=== PATIENT | male | born 1990 | race African-American/Black ===

== ENCOUNTER 2016-08-17 17:52 | Emergency (ER) | payer SELFPAY ==
[2016-08-17 17:55] VITALS: BP 135/69; BMI 18.1
[2016-08-17] MEDS ORDERED: ROCEPHIN VIAL 500 MG IM ONE (18:57)
--- NOTE | 2016-08-17 18:57 | DR.GENAD ---
HPI - PCP Primary Care Physician: NFD - Complaint/Symptoms Chief Complaint:: PATIENT STATED THAT IT HURTS WHEN HE URINATES. PATIENT STATED THAT HE HAS SOME YELLOWISH DISCHARGE. - Source History Provided: Patient - Mode of Arrival Mode of Arrival: Ambulatory - Timing Onset of Chief Complaint: 08/17/16 PMH - PMH Past Medical History: No Past Surgical History: No - Family History History of Family Medical Conditions: No - Social History Does patient currently use any type of tobacco product: Yes Have you used tobacco products in the last 12 months: Yes Type of Tobacco Use: Cigarettes Does any household member use tobacco: No Alcohol Use: None Do you use any recreational Drugs:: No Lives With: Family Lives Where: Home - infectious screening In the last 2 months have you had wt loss of >10#?: NO Have you had fever, night sweats or hemotysis?: No Have you traveled outside the country in the last 6 months?: No Isolation: Standard ROS - Review of Systems Eyes: No Symptoms Reported ENTM: No Symptoms Reported Respiratoy: No Symptoms Reported Cardiovascular: No Symptoms Reported Gastrointestinal/Abdominal: No Symptoms Reported Genitourinary: No Symptoms Reported Neurological: No Symptoms Reported Musculoskeletal: No Symptoms Reported Integumentary: No Symptoms Reported Hematologic/Lymphatic: No Symptoms Reported Endocrine: No Symptoms Reported Psychiatric: No Symptoms Reported All Other Systems: Reviewed and Negative PE - Vital Signs Vitals: Temperature 98.2 F Pulse Rate 90 Respiratory Rate 20 Blood Pressure 135/69 O2 Sat by Pulse Oximetry 100 - General General Appearance: Alert, In No Apparent Distress - Head Head Exam: Normal Inspection, Atraumatic - Eyes Eye exam: Normal Appearance, PERRL, EOMI - ENT ENT Exam: Normal Exam External Ear Exam: Normal External Inspection TM/Canal Exam: Bilateral Normal Nose Exam: Normal Nose Exam Mouth Exam: Normal Inspection Throat Exam: Normal Inspection - Neck Neck Exam: Normal Inspection - Chest Chest Inspection: Normal Inspection - Respiratory Respiratory Exam: Normal Lung Sounds Bilat Respiratory Exam: Bilateral Clear to Auscultation - Cardiovascular Cardiovascular Exam: Regular Rate, Normal Rhythm - Abdominal Exam Abdominal Exam: Normal Inspection, Normal Bowel Sounds Abdominal Tenderness: negative: RUQ, RLQ, LUQ, LLQ, Epigastrium, Suprapubic, Diffuse, Mild, Moderate, Severe, Other - Extremities Extremities Exam: Normal Inspection, Full ROM - Back Back Exam: Normal Inspection - Neurologic Neurological Exam: Alert, Oriented X3, CN II-XII Intact - Psychiatric Psychiatric Exam: Normal Affect - Skin Skin Exam: Warm, Dry, Intact Course - Treatment Treatment: ceftriaxone 500mg IM - Reevaluation 1st: Unchanged - Diagnosis Discharge Problem: STD (sexually transmitted disease) - Discharge Plan Condition: Stable - Follow ups/Referrals Follow ups/Referrals: NFD,None [Primary Care Provider] - 3 days - Instructions
[2016-08-17] MEDS ORDERED: XYLOCAINE 1 % (PLAIN) ONE (19:01)
[2016-08-17] MEDS ORDERED: ROCEPHIN VIAL 500 MG ONE (19:01)
[2016-08-17 20:50] LABS: CHLAMYDIA TRACH URINE NOT DETECTED (NOT DETECT)
[2016-08-23 07:29] LABS: HCV VIRAL LOG <1.2 log IU
== END 2016-08-17 19:28 | disposition home or self-care (01) ==
LOC: ER 18:01
DX: A64 Unspecified sexually transmitted disease (principal)
CPT/HCPCS: 87491; 87522; 87591; 96372; 99282; J0696; J2001

== ENCOUNTER 2023-06-25 07:09 | Observation (INO) ==
[2023-06-25 07:18] VITALS: BMI 18.8
--- NOTE | 2023-06-25 07:27 | DR.ABDMALE ---
HPI Time seen Time Seen by Provider: 06/25/23 07:26 PCP Primary Care Physician: EDMOND HPI comment HPI Comment: RLQ abdominal pain that started two prior to arrival to ER. No vomiting or diarrhea. Patient denies fever or dysuria. Patient last ate last ni ght and may have drank some water this morning at 6 AM. Patient have had no previous surgery and no significant abdominal history in the past. Complaint Chief Complaint Doctors Comments: Patient is 32-year-old male in the emergency room with above history. Chief Complaint:: Patient states that for the past hour he has been having abdominal pain. He states that it is tender on his right lower quadrant more than the rest but the pain is present throughout. He also states that he is having pain in his right shoulder. He denies any throwin up or loose stools. COVID-19 Coronavirus risk:travel/contact w/high risk person: No Has patient experienced Coronavirus symptoms: No Reviewed Nurses Notes Review: Yes Mode of arrival Mode of Arrival: Ambulatory Timing Onset of Chief Complaint: 06/25/23 PMH PMH Past Medical History: Yes Past Medical History: Headaches Past Surgical History: No Family History History of Family Medical Conditions: Yes Family Medical History: Hypertension Social History Does patient currently use any type of tobacco product: Yes Have you used tobacco products in the last 12 months: Yes Type of Tobacco Use: Cigarettes Does any household member use tobacco: Yes Alcohol Use: Occasionally Do you use any recreational Drugs:: No Lives Where: Home Travel Risk Coronavirus risk:travel/contact w/high risk person: No Has patient experienced Coronavirus symptoms: No Infectious screening In the last 2 months have you had wt loss of >10#?: NO Have you had fever, night sweats or hemotysis?: No Have you traveled outside the country in the last 6 months?: No Isolation: Standard ROS Review of Systems Constitutional: No Symptoms Reported Eyes: No Symptoms Reported ENTM: No Symptoms Reported Respiratoy: No Symptoms Reported Cardiovascular: No Symptoms Reported Gastrointestinal/Abdominal: Abdominal Pain; negative Diarrhea or Vomiting Genitourinary: No Symptoms Reported; negative Dysuria Neurological: No Symptoms Reported Musculoskeletal: No Symptoms Reported Integumentary: No Symptoms Reported Hematologic/Lymphatic: No Symptoms Reported Endocrine: No Symptoms Reported Psychiatric: No Symptoms Reported All Other Systems: Reviewed and Negative PE Vital Signs Vital Signs: Temp Pulse Resp BP Pulse Ox O2 Del Method 06/25/23 08:26 22 06/25/23 07:56 18 06/25/23 07:12 97.6 F 77 18 121/63 99 Room Air General Limitations: No Limitations General Appearance: Alert Head Head Exam: Normal Inspection Eyes Eye exam: Normal Appearance ENT ENT Exam: Normal Exam Neck Neck Exam: Normal Inspection Chest Chest Inspection: Normal Inspection Respiratory Respiratory Exam: Normal Lung Sounds Bilat Respiratory Exam: Bilateral: Clear to Auscultation Cardiovascular Cardiovascular Exam: Regular Rate Abdominal Exam Abdominal Exam: Normal Bowel Sounds, Distention and Tenderness Abdominal Tenderness: RLQ, Diffuse and Moderate Rectal Rectal Exam: Deferred Back Back Exam: Normal Inspection; negative (R) CVA Tenderness or (L) CVA Tenderness Extremeties Extremities Exam: Normal Inspection Exam: Male: Deferred Neurologic Neurological Exam: Alert and Oriented X3; negative Motor Sensory Deficit Psychiatric Psychiatric Exam: Normal Affect and Normal Mood Skin Skin Exam: Warm and Intact MDM Differential Diagnosis Differential Diagnosis: Appendicitis, Bowel Obstruction, Cholangitis, Cholelethiasis, Diverticular disease, Inflammatory BD, Pancreatitis, Urinary tract infection and Urolithiasis COURSE Treatment Treatment: See orders done while patient was in the emergency room. Patient was given normal saline 125 cc an hour. Patient was also given Demerol 25 mg IV. Patient was discussed with surgeon on-call Dr. De La Fuente. He will accept patient for further management. Patient labs and CT was discussed with him. Consultation Consultation Comments: Patient discussed with Dr. Colon surgeon on-call. He will admit patient for further management. Education/Counseling Education/Counseling: Patient Educated On: Diagnosis ROR Labs Reviewed Laboratory Results Reviewed?: Yes 06/25/23 07:49 06/25/23 07:49 Laboratory: WBC 16.1 X10^3/uL (3.6-10.0) H 06/25/23 07:49 RBC 3.62 X10^6/uL (4.7-6.0) L 06/25/23 07:49 Hgb 12.4 g/dL (13.5-18.0) L 06/25/23 07:49 Hct 37.9 % (42.0-54.0) L 06/25/23 07:49 MCV 104.8 fL (80.0-100.0) H 06/25/23 07:49 MCH 34.4 pg (27.0-34.0) H 06/25/23 07:49 MCHC 32.8 g/dL (33.0-35.0) L 06/25/23 07:49 RDW 13.5 % (11.6-16.5) 06/25/23 07:49 Plt Count 359 X10^3/uL (150.0-450.0) 06/25/23 07:49 MPV 7.2 fL (7.4-11.0) L 06/25/23 07:49 Neut % (Auto) 65.3 % (42.0-75.0) 06/25/23 07:49 Lymph % (Auto) 24.7 % (21.0-51.0) 06/25/23 07:49 [place] % (Auto) 7.9 % (0.0-13.0) 06/25/23 07:49 Eos % (Auto) 1.5 % (0.9-2.9) 06/25/23 07:49 Baso % (Auto) 0.6 % (0.2-1.0) 06/25/23 07:49 Neut # (Auto) 10.5 x10^3/uL (2.2-4.8) H 06/25/23 07:49 Lymph # (Auto) 4.0 X10^3/uL (1.3-2.9) H 06/25/23 07:49 [place] # (Auto) 1.3 x10^3/uL (0.3-0.8) H 06/25/23 07:49 Eos # (Auto) 0.2 x10^3/uL (0.0-0.2) 06/25/23 07:49 Baso # (Auto) 0.1 X10^3/uL (0.0-0.1) 06/25/23 07:49 Absolute Nucleated RBC 0.0 /100WBC 06/25/23 07:49 Sodium 146 mmol/L (136-145) H 06/25/23 07:49 Corrected Sodium 147 mmol/L (136-145) H 06/25/23 07:49 Potassium 3.5 mmol/L (3.5-5.1) 06/25/23 07:49 Chloride 107 mmol/L (98-107) 06/25/23 07:49 Carbon Dioxide 29.5 mmol/L (21-32) 06/25/23 07:49 BUN 13 mg/dL (7-18) 06/25/23 07:49 Creatinine 0.93 mg/dL (0.70-1.30) 06/25/23 07:49 Est GFR (MDRD) Af Amer > 60 (>60) 06/25/23 07:49 Est GFR (MDRD) Non-Af > 60 (>60) 06/25/23 07:49 Glucose 134 mg/dL (65-99) H 06/25/23 07:49 Calcium 8.4 mg/dL (8.5-10.1) L 06/25/23 07:49 Corrected Calcium TNP 06/25/23 07:49 Magnesium 1.8 mg/dL (2.0-2.9) L 06/25/23 07:49 Total Bilirubin 0.20 mg/dL (0.2-1.0) 06/25/23 07:49 AST 14 Units/L (15-37) L 06/25/23 07:49 ALT 18 Units/L (12-78) 06/25/23 07:49 Alkaline Phosphatase 70 Units/L (46-116) 06/25/23 07:49 Total Protein 7.0 g/dL (6.4-8.2) 06/25/23 07:49 Albumin 3.8 g/dL (3.4-5.0) 06/25/23 07:49 Globulin 3.2 g/dL (2.5-4.5) 06/25/23 07:49 Albumin/Globulin Ratio 1.2 Ratio (1.1-2.1) 06/25/23 07:49 Amylase 38 Units/L (25-115) 06/25/23 07:49 Lipase 25 Units/L (16-77) 06/25/23 07:49 XRAY XRAY Interpreted by: Radiologist (Report noted.) Opioid Opioid Risk Tool Age (Neto box if 16-45): Yes History of Preadolescent Sexual Abuse: No Total: 1 Total Score Risk Category: Low Risk Copyright: Gareth MANNING predicting aberrant behaviors Discharge Plan Diagnosis Discharge Problem: Abdominal pain, RLQ Acute appendicitis Qualifiers: Acute appendicitis type: unspecified acute appendicitis type Qualified Code(s): K35.80 - Unspecified acute appendicitis Discharge Plan Patient Disposition: ADMITTED INPATIENT Condition: Stable
[2023-06-25] MEDS: ZOFRAN INJ 4 MG VIAL IVP ONE (07:55)
[2023-06-25] MEDS: DEMEROL INJ IVP ONE (07:56)
[2023-06-25 08:00] LABS: BASOPHILS # (AUTO) 0.1 X10^3/uL (0.0-0.1); BASOPHILS % (AUTO) 0.6 % (0.2-1.0); EOSINOPHILS # (AUTO) 0.2 x10^3/uL (0.0-0.2); EOSINOPHILS % (AUTO) 1.5 % (0.9-2.9); HEMATOCRIT 37.9 % (42.0-54.0); HEMOGLOBIN 12.4 g/dL (13.5-18.0); LYMPHOCYTES % (AUTO) 24.7 % (21.0-51.0); MEAN CORPUSCULAR HEMOGLOBIN 34.4 pg (27.0-34.0); MEAN CORPUSCULAR HGB CONC 32.8 g/dL (33.0-35.0); MEAN CORPUSCULAR VOLUME 104.8 fL (80.0-100.0); MEAN PLATELET VOLUME 7.2 fL (7.4-11.0); MONOCYTES # (AUTO) 1.3 x10^3/uL (0.3-0.8); MONOCYTES % (AUTO) 7.9 % (0.0-13.0); NEUTROPHILS # (AUTO) 10.5 x10^3/uL (2.2-4.8); NEUTROPHILS % (AUTO) 65.3 % (42.0-75.0); PLATELET COUNT 359 X10^3/uL (150.0-450.0); RED BLOOD COUNT 3.62 X10^6/uL (4.7-6.0); RED CELL DISTRIBUTION WIDTH 13.5 % (11.6-16.5); WHITE BLOOD COUNT 16.1 X10^3/uL (3.6-10.0)
--- NOTE | 2023-06-25 08:04 | CT ---
EXAM:CT abdomen and pelvis without contrastHISTORY:Acute generalized abdominal pain, most notable in right lower quadrant.COMPARISON:None.TECHNIQUE:Multi ple axial images of the abdomen and pelvis were obtained from the lung bases to the pubic symphysis without the administration of IV contrast. Dose reduction techniques including Automated Exposure Control (AEC) and adjustment of mA and kV were utilized.FINDINGS:LOWER CHEST: No significant abnormality.LIVER: No significant abnormality.BILIARY: The gallbladder is unremarkable. No biliary ductal dilatation.PANCREAS:No significant abnormality.SPLEEN: No significant abnormality.ADRENALS: No significant abnormality.KIDNEYS: Nonobstructive 4 mm midpole left renal stone.STOMACH AND BOWEL: No significant abnormality.APPENDIX: Dilated, measuring 8 mm in transverse dimension with wall thickening, appendicoliths and surrounding moderate fat stranding.PERITONEUM: Small amount of free fluid in the pelvis. No free air or fluid collection.VASCULATURE: No significant abnormality.LYMPH NODES: No adenopathy.BLADDER: No significant abnormality.REPRODUCTIVE ORGANS: No significant abnormality.BONES: No significant abnormality.ADDITIONAL FINDINGS: None.IMPRESSION:Uncomplicated acute appendicitis.THIS IS AN ELECTRONICALLY VERIFIED FINAL REPORT06/25/2023 8:00 AM - Electronically signed by Rodríguez Sanchez MD
[2023-06-25 08:22] LABS: ALANINE AMINOTRANSFERASE 18 Units/L (12-78); ALBUMIN 3.8 g/dL (3.4-5.0); ALKALINE PHOSPHATASE 70 Units/L (46-116); AMYLASE 38 Units/L (25-115); ASPARTATE AMINO TRANSFERASE 14 Units/L (15-37); BLOOD UREA NITROGEN 13 mg/dL (7-18); CALCIUM 8.4 mg/dL (8.5-10.1); CARBON DIOXIDE 29.5 mmol/L (21-32); CHLORIDE 107 mmol/L (98-107); COR NA(FOR HYPERGLY) 147 mmol/L (136-145); CREATININE 0.93 mg/dL (0.70-1.30); GLUCOSE 134 mg/dL (65-99); LIPASE 25 Units/L (16-77); POTASSIUM 3.5 mmol/L (3.5-5.1); SODIUM 146 mmol/L (136-145); eGFR NON BLACK RACES > 60 (>60)
[2023-06-25] MEDS: NS 1,000 ML IV 1,000 ML IV SCH ×2 (09:20→10:18)
[2023-06-25] MEDS: ZOSYN VIAL 3.375 GRAMS 3.375 G in NS 100 ML IV 100 ML IV ONE (09:20)
[2023-06-25] MEDS: DILAUDID INJ IVP ONE (09:20)
[2023-06-25] MEDS ORDERED: DEMEROL INJ IVP PRN (10:14)
[2023-06-25] MEDS ORDERED: NS 250 ML IV 25 ML IV PRN (10:14)
[2023-06-25] MEDS ORDERED: ZOFRAN INJ 4 MG VIAL IVP PRN ×2 (10:14→10:49)
[2023-06-25] MEDS: ZOSYN VIAL 3.375 GRAMS 3.375 G in NS 100 ML IV 100 ML IV SCH (10:17)
[2023-06-25] MEDS: DILAUDID INJ ONE (10:17)
[2023-06-25] MEDS: NS 1,000 ML IV 1,000 ML ONE (10:18)
[2023-06-25] MEDS: ZOSYN VIAL 3.375 GRAMS IV ONE (10:19)
[2023-06-25] MEDS: NS 100 ML IV 100 ML ONE ×2 (10:19→11:30)
--- NOTE | 2023-06-25 10:41 | DR.H&P ---
H&P History & Physical for Day of: H&P Date: 06/25/23 Chief Complaint Chief Complaint: 32 yo male presented to the ER with several hour history of right lower quadrant pain. Evaluated in the ER and CT scan consistent with early acute appendicitis. No other significant past medical history . Afebrile and WBC count 16k. Allergies Allergies Allergy/AdvReac Type Severity Reaction Status Date / Time No Known Allergies Allergy Verified 06/25/23 07:41 History of Present Illness History of Present Illness: as above Past Medical History Past Medical History: Headaches Family History Family Medical History: Hypertension Social History Does patient currently use any type of tobacco product: Yes Have you used tobacco products in the last 12 months: Yes Type of Tobacco Use: Cigarettes Does any household member use tobacco: Yes Alcohol Use: Occasionally Medications Home Medications: Home Medications Medication Instructions Recorded Confirmed Type NK 06/25/23 06/25/23 History Labs 06/25/23 07:49 06/25/23 07:49 Labs: Laboratory WBC 16.1 X10^3/uL (3.6-10.0) H 06/25/23 07:49 RBC 3.62 X10^6/uL (4.7-6.0) L 06/25/23 07:49 Hgb 12.4 g/dL (13.5-18.0) L 06/25/23 07:49 Hct 37.9 % (42.0-54.0) L 06/25/23 07:49 MCV 104.8 fL (80.0-100.0) H 06/25/23 07:49 MCH 34.4 pg (27.0-34.0) H 06/25/23 07:49 MCHC 32.8 g/dL (33.0-35.0) L 06/25/23 07:49 RDW 13.5 % (11.6-16.5) 06/25/23 07:49 Plt Count 359 X10^3/uL (150.0-450.0) 06/25/23 07:49 MPV 7.2 fL (7.4-11.0) L 06/25/23 07:49 Neut % (Auto) 65.3 % (42.0-75.0) 06/25/23 07:49 Lymph % (Auto) 24.7 % (21.0-51.0) 06/25/23 07:49 [place] % (Auto) 7.9 % (0.0-13.0) 06/25/23 07:49 Eos % (Auto) 1.5 % (0.9-2.9) 06/25/23 07:49 Baso % (Auto) 0.6 % (0.2-1.0) 06/25/23 07:49 Neut # (Auto) 10.5 x10^3/uL (2.2-4.8) H 06/25/23 07:49 Lymph # (Auto) 4.0 X10^3/uL (1.3-2.9) H 06/25/23 07:49 [place] # (Auto) 1.3 x10^3/uL (0.3-0.8) H 06/25/23 07:49 Eos # (Auto) 0.2 x10^3/uL (0.0-0.2) 06/25/23 07:49 Baso # (Auto) 0.1 X10^3/uL (0.0-0.1) 06/25/23 07:49 Absolute Nucleated RBC 0.0 /100WBC 06/25/23 07:49 Sodium 146 mmol/L (136-145) H 06/25/23 07:49 Corrected Sodium 147 mmol/L (136-145) H 06/25/23 07:49 Potassium 3.5 mmol/L (3.5-5.1) 06/25/23 07:49 Chloride 107 mmol/L (98-107) 06/25/23 07:49 Carbon Dioxide 29.5 mmol/L (21-32) 06/25/23 07:49 BUN 13 mg/dL (7-18) 06/25/23 07:49 Creatinine 0.93 mg/dL (0.70-1.30) 06/25/23 07:49 Est GFR (MDRD) Af Amer > 60 (>60) 06/25/23 07:49 Est GFR (MDRD) Non-Af > 60 (>60) 06/25/23 07:49 Glucose 134 mg/dL (65-99) H 06/25/23 07:49 Calcium 8.4 mg/dL (8.5-10.1) L 06/25/23 07:49 Corrected Calcium TNP 06/25/23 07:49 Total Bilirubin 0.20 mg/dL (0.2-1.0) 06/25/23 07:49 AST 14 Units/L (15-37) L 06/25/23 07:49 ALT 18 Units/L (12-78) 06/25/23 07:49 Alkaline Phosphatase 70 Units/L (46-116) 06/25/23 07:49 Total Protein 7.0 g/dL (6.4-8.2) 06/25/23 07:49 Albumin 3.8 g/dL (3.4-5.0) 06/25/23 07:49 Globulin 3.2 g/dL (2.5-4.5) 06/25/23 07:49 Albumin/Globulin Ratio 1.2 Ratio (1.1-2.1) 06/25/23 07:49 Amylase 38 Units/L (25-115) 06/25/23 07:49 Lipase 25 Units/L (16-77) 06/25/23 07:49 Review of Systems Constitutional: See HPI Eyes: No Symptoms Reported ENT: No Symptoms Reported Respiratory: No Symptoms Reported Cardiovascular: No Symptoms Reported Gastrointestinal: No Symptoms Reported Genitourinary: No Symptoms Reported Musculoskeletal: No Symptoms Reported Skin: No Symptoms Reported Neurological: No Symptoms Reported Physical Exam Vital Signs: Vital Signs Temperature 97.6 F Pulse Rate 77 Respiratory Rate 22 Respiratory Rate 22 Respiratory Rate 18 Respiratory Rate 18 Blood Pressure 121/63 O2 Sat by Pulse Oximetry 99 Oriented: Normal, Time, Person and Place Eyes: Normal Ear: Normal Nose: Normal Throat: Normal Respiratory: Clear Throughout : Normal Auscultation: Bowel Sounds: Normal Palpation: Other (no masses ) Tenderness: RLQ (mild without rebound) Skin: Normal Musculoskeletal: Normal Psychiatric: Normal Mood Description: Calm Affect: Normal Speech Pattern: Clear Assessment/Plan (1) Acute appendicitis: Qualifiers: Acute appendicitis type: unspecified acute appendicitis type Qualified Code(s): K35.80 - Unspecified acute appendicitis Status: Acute Plan: Will plan laparoscopic appendectomy. Risks and benefits discussed
[2023-06-25] MEDS ORDERED: BARHEMSYS INJ IVP PRN (10:49)
[2023-06-25] MEDS ORDERED: REGLAN INJ 10 MG VIAL IVP PRN (10:49)
[2023-06-25] MEDS ORDERED: BENADRYL INJ 50 MG VIAL IVP PRN (10:49)
[2023-06-25] MEDS ORDERED: CONSULT PHARMACY - POTASSIUM & MAGNESIUM XX SCH (11:00)
[2023-06-25] MEDS: LR 1,000 ML IV 1,000 ML IV ONE (11:30)
[2023-06-25] MEDS: ANCEF VIAL 1 GRAM ONE (11:30)
[2023-06-25] MEDS ORDERED: KETAMINE HCL ONE (11:38)
[2023-06-25] MEDS: PEPCID 20 MG VIAL ONE (11:38)
[2023-06-25] MEDS: DECADRON INJ ONE (11:38)
[2023-06-25] MEDS: DIPRIVAN VIAL 20 ML ONE (11:38)
[2023-06-25] MEDS: PRECEDEX INJ VIAL ONE (11:38)
[2023-06-25] MEDS: ZEMURON 100 MG VIAL ONE (11:38)
[2023-06-25] MEDS: BRIDION ONE (11:38)
[2023-06-25] MEDS: VERSED ONE (11:38)
[2023-06-25] MEDS: QUELICIN (OR ANECTINE) ONE (11:38)
[2023-06-25] MEDS: MAGNESIUM SULFATE 50% INJ VIAL ONE (11:38)
[2023-06-25] MEDS ORDERED: SUPRANE ONE (11:38)
[2023-06-25] MEDS: MORPHINE SULFATE INJ 10 MG ONE (11:38)
[2023-06-25] MEDS: ROBINUL ONE (11:38)
[2023-06-25] MEDS: MARCAINE/EPINEPHRINE ONE (12:14)
--- NOTE | 2023-06-25 12:16 | OR.IMMED ---
IMMEDIATE POST-OP NOTE Immediate Post-Op Note Date of surgery/procedure: 06/25/23 Pre-Op Diagnosis: early acute appendicitis Post-Op Diagnosis: suppurative appendicitis Procedure: laparoscopic appendectomy Description of Procedure: see dictation Surgeon/Button Maker And Installer: Sudhakar Findings: as above Specimens Removed: appendix Estimated Blood Loss: minimal Drains: NONE Complications: none Progress Notes: to floor, diet , pain control and po Cipro
[2023-06-25] MEDS: K-RIDER 10 MEQ/100 ML WATER 10 MEQ/100 ML BAG IV SCH (13:20)
--- NOTE | 2023-06-25 15:18 | DR.OPNOTE ---
OP NOTE Pre-Op Diagnosis: early acute appendicitis Post-Op Diagnosis: acute supparative appendicitis Procedure Date Date Of Procedure: 06/25/23 Procedure: PROCEDURE : LAPAROSCOPIC APPENDECTOMY NARRATIVE : Patient was taken to the operative suite and placed in the supine position. General endotracheal anaesthesia induced. Patient placed in slight Trendelenberg pisition and rolled to the left .The entire abdomen was prepped and draped in sterile fashion. Time out for the procedure obtained. 5 mm incision was made lateral to the left rectus sheath on line with the umbilicus and a 5 mm optical trocar used to enter the abdominal cavity. The abd omen insufflated to 15 mm of Hg with carbon dioxide. Under direct vision a 5 mm trocar placed above the pubic tubercles in the midline and a 12 mm trocar placed in the left lower quadrant. The patient's appendiix was easy identified and it dissected free with blunt and sharp dissection. There was evidence of acute supparitive appendicitis but no obvious perforation. Appendix was dived at it's base and it's mesentery divided with the laparoscopic TATUM stapler using vascular nicole. The appendix placed in a specimen bag and brought out throught the 12 mm trocar site. The abdomen was irrigated with saline and suctioned free. All trocars removed. All incisions closed with interrupted 3-0 Vicryl subcutaneous sutures and the skin closed with 1/2 inch steri strips . 0.5% marcaine was injected in each incision. Patient extubated and taken to the PACU in good condition. Type of Anesthesia: General Anesthetic w/ETT Findings: acute supparative appendicitis Specimen/Pathology: appendix Type of Fluids Used:: Lactated Ringers Total Amount of Fluid Infused:: 400 cc EBL: minimal Drains/Tubes Placed: None Complications:: none Needle/Sponge Count:: correct Disposition/Condition: Pt. tolerated procedure without difficulty. Extubated in the OR and taken to PACU in stable condition.
[2023-06-25] MEDS: MAGNESIUM SULFATE 1 GRAM/100 mL PREMIX 1 G/100 ML BAG IV SCH (15:55)
[2023-06-25] MEDS: PERCOCET TAB 5/325 MG PO PRN (16:03)
[2023-06-25 16:37] LABS: BILIRUBIN,URINE NEGATIVE (NEGATIVE); BLOOD/HEMOGLOBIN,URINE NEGATIVE (NEGATIVE); GLUCOSE, URINE NEGATIVE (NEGATIVE); KETONES,URINE NEGATIVE (NEGATIVE); LEUKOCYTE ESTERASE ,URINE NEGATIVE (NEGATIVE); NITRITES,URINE NEGATIVE (NEGATIVE); PROTEIN,URINE NEGATIVE (NEGATIVE); UROBILINOGEN,URINE NORMAL (NORMAL)
[2023-06-25 16:39] LABS: APPEARANCE,URINE CLEAR (CLEAR); COLOR,URINE YELLOW (YELLOW)
[2023-06-25] MEDS: CIPRO TAB 500 MG PO SCH (20:09)
[2023-06-25] MEDS: DILAUDID INJ IVP PRN (20:19)
[2023-06-26 04:02] VITALS: RESP 18; O2SAT 98
[2023-06-26 05:31] LABS: BASOPHILS % (AUTO) 0.1 % (0.2-1.0); EOSINOPHILS % (AUTO) 0.1 % (0.9-2.9); HEMATOCRIT 35.2 % (42.0-54.0); HEMOGLOBIN 11.8 g/dL (13.5-18.0); LYMPHOCYTES # (AUTO) 1.7 X10^3/uL (1.3-2.9); LYMPHOCYTES % (AUTO) 7.7 % (21.0-51.0); MEAN CORPUSCULAR HEMOGLOBIN 34.7 pg (27.0-34.0); MEAN CORPUSCULAR HGB CONC 33.5 g/dL (33.0-35.0); MEAN CORPUSCULAR VOLUME 103.4 fL (80.0-100.0); MEAN PLATELET VOLUME 8.1 fL (7.4-11.0); MONOCYTES # (AUTO) 2.3 x10^3/uL (0.3-0.8); MONOCYTES % (AUTO) 10.1 % (0.0-13.0); NEUTROPHILS # (AUTO) 18.4 x10^3/uL (2.2-4.8); PLATELET COUNT 315 X10^3/uL (150.0-450.0); WHITE BLOOD COUNT 22.5 X10^3/uL (3.6-10.0)
[2023-06-26 05:45] LABS: ALANINE AMINOTRANSFERASE 15 Units/L (12-78); ALBUMIN 3.1 g/dL (3.4-5.0); ALKALINE PHOSPHATASE 59 Units/L (46-116); ASPARTATE AMINO TRANSFERASE 14 Units/L (15-37); BLOOD UREA NITROGEN 9 mg/dL (7-18); CALCIUM 8.7 mg/dL (8.5-10.1); CARBON DIOXIDE 25.7 mmol/L (21-32); CHLORIDE 105 mmol/L (98-107); COR CA(FOR HYPOALB) 9.4 mg/dL (8.5-10.1); CREATININE 0.75 mg/dL (0.70-1.30); GLUCOSE 97 mg/dL (65-99); POTASSIUM 4.3 mmol/L (3.5-5.1); SODIUM 138 mmol/L (136-145); TOTAL PROTEIN 6.6 g/dL (6.4-8.2); eGFR NON BLACK RACES > 60 (>60)
[2023-06-26 06:28] LABS: BAND NEUTROPHILS % 4 % (0-10); PLATELET MORPHOLOGY COMMENT NORMAL (NORMAL)
[2023-06-26 08:27] VITALS: BP 107/68; PULSE 85; TEMP 98.1
--- NOTE | 2023-06-26 10:23 | W.DIS.FURT ---
Summary of Discharge Discharge Summary of Date Date of Exam: 06/26/23 Admission Date Date of Admission: 06/25/23 Admission Diagnosis Patient Problems (Updated 06/25/23 @ 08:49 by ALEX MORA) Acute appendicitis (Acute) K35.80 Abdominal pain, RLQ (Acute) R10.31 Hospital Course: This is a 32-year-old [employer] the male who presented with acute onset of right lower quadrant pain. CT scan was consistent with acute appendicitis. patient was taken shortly after admission to the operating suite where he under an uncomplicated laparoscopic appendectomy showing supprrative appendicitis with no obvious perforation . He has done well and will be discharged on Cipro, 500 mg PO BID for 1 week and be given a prescription for Percocet, 5 milligram tablets 1 every 6 hours PRN pain . F/U 1 week. Vital Signs: Vital Signs (72 hours) 06/25/23 07:12 06/25/23 07:56 06/25/23 08:26 Temperature 97.6 F Pulse Rate 77 Pulse Rate [Apical] Respiratory Rate 18 18 22 Blood Pressure 121/63 Blood Pressure [Left Arm] Blood Pressure [Right Arm] O2 Sat by Pulse Oximetry 99 Oxygen Delivery Method Room Air 06/25/23 09:20 06/25/23 09:28 06/25/23 09:50 Temperature Pulse Rate Pulse Rate [Apical] Respiratory Rate 22 20 Blood Pressure Blood Pressure [Left Arm] Blood Pressure [Right Arm] O2 Sat by Pulse Oximetry Oxygen Delivery Method Room Air 06/25/23 09:55 06/25/23 11:38 06/25/23 12:15 Temperature 97.8 F 97.5 F L Pulse Rate 96 H Pulse Rate [Apical] 91 H Respiratory Rate 17 18 16 Blood Pressure 113/60 Blood Pressure [Left Arm] 106/57 Blood Pressure [Right Arm] O2 Sat by Pulse Oximetry 96 100 Oxygen Delivery Method Room Air Aerosol Face Tent 06/25/23 12:20 06/25/23 12:25 06/25/23 12:30 Temperature Pulse Rate 91 H 94 H 88 Pulse Rate [Apical] Respiratory Rate 16 18 18 Blood Pressure 113/61 119/65 107/61 Blood Pressure [Left Arm] Blood Pressure [Right Arm] O2 Sat by Pulse Oximetry 100 100 99 Oxygen Delivery Method Aerosol Face Tent Aerosol Face Tent Room Air 06/25/23 12:35 06/25/23 12:40 06/25/23 12:45 Temperature Pulse Rate 88 99 H 98 H Pulse Rate [Apical] Respiratory Rate 18 17 18 Blood Pressure 105/59 125/58 112/58 Blood Pressure [Left Arm] Blood Pressure [Right Arm] O2 Sat by Pulse Oximetry 99 99 99 Oxygen Delivery Method Room Air Room Air Room Air 06/25/23 16:03 06/25/23 17:03 06/25/23 12:55 Temperature 97.7 F Pulse Rate Pulse Rate [Apical] 85 Respiratory Rate 18 18 18 Blood Pressure Blood Pressure [Left Arm] 115/64 Blood Pressure [Right Arm] O2 Sat by Pulse Oximetry 97 Oxygen Delivery Method 06/25/23 17:55 06/25/23 13:10 06/25/23 13:25 Temperature 97.3 F L 97.3 F L 97.6 F Pulse Rate Pulse Rate [Apical] 84 86 82 Respiratory Rate 18 18 18 Blood Pressure Blood Pressure [Left Arm] 114/74 104/62 107/59 Blood Pressure [Right Arm] O2 Sat by Pulse Oximetry 100 98 98 Oxygen Delivery Method 06/25/23 13:40 06/25/23 13:55 06/25/23 14:55 Temperature 97.4 F L 97.4 F L 97.1 F L Pulse Rate Pulse Rate [Apical] 83 81 80 Respiratory Rate 18 18 18 Blood Pressure Blood Pressure [Left Arm] 109/61 110/63 112/67 Blood Pressure [Right Arm] O2 Sat by Pulse Oximetry 99 98 98 Oxygen Delivery Method 06/25/23 15:55 06/25/23 16:55 06/25/23 19:00 Temperature 97.1 F L 97.3 F L Pulse Rate Pulse Rate [Apical] 80 87 Respiratory Rate 18 17 Blood Pressure Blood Pressure [Left Arm] 121/77 119/73 Blood Pressure [Right Arm] O2 Sat by Pulse Oximetry 99 100 Oxygen Delivery Method Room Air 06/25/23 20:19 06/25/23 22:40 06/25/23 20:49 Temperature Pulse Rate Pulse Rate [Apical] Respiratory Rate 18 20 18 Blood Pressure Blood Pressure [Left Arm] Blood Pressure [Right Arm] O2 Sat by Pulse Oximetry Oxygen Delivery Method 06/25/23 20:10 06/25/23 20:00 06/25/23 23:39 Temperature 98.2 F 98.1 F Pulse Rate 71 Pulse Rate [Apical] 90 81 Respiratory Rate 18 18 Blood Pressure Blood Pressure [Left Arm] Blood Pressure [Right Arm] 109/61 109/65 O2 Sat by Pulse Oximetry 99 99 99 Oxygen Delivery Method Room Air Room Air 06/25/23 23:40 06/25/23 23:40 06/26/23 04:00 Temperature 98.1 F 98.0 F Pulse Rate Pulse Rate [Apical] 81 77 Respiratory Rate 18 20 18 Blood Pressure Blood Pressure [Left Arm] Blood Pressure [Right Arm] 109/65 98/61 O2 Sat by Pulse Oximetry 99 98 Oxygen Delivery Method Room Air Room Air 06/26/23 07:00 06/26/23 08:00 Temperature 98.1 F Pulse Rate Pulse Rate [Apical] 85 Respiratory Rate 18 Blood Pressure Blood Pressure [Left Arm] Blood Pressure [Right Arm] 107/68 O2 Sat by Pulse Oximetry 98 Oxygen Delivery Method Room Air Room Air Labs: Laboratory Last Values WBC 22.5 X10^3/uL (3.6-10.0) H 06/26/23 04:54 RBC 3.40 X10^6/uL (4.7-6.0) L 06/26/23 04:54 Hgb 11.8 g/dL (13.5-18.0) L 06/26/23 04:54 Hct 35.2 % (42.0-54.0) L 06/26/23 04:54 MCV 103.4 fL (80.0-100.0) H 06/26/23 04:54 MCH 34.7 pg (27.0-34.0) H 06/26/23 04:54 MCHC 33.5 g/dL (33.0-35.0) 06/26/23 04:54 RDW 13.0 % (11.6-16.5) 06/26/23 04:54 Plt Count 315 X10^3/uL (150.0-450.0) 06/26/23 04:54 Plt Count Comment Adequate (ADEQUATE) 06/26/23 04:54 MPV 8.1 fL (7.4-11.0) 06/26/23 04:54 Neut % (Auto) 82.0 % (42.0-75.0) H 06/26/23 04:54 Lymph % (Auto) 7.7 % (21.0-51.0) L 06/26/23 04:54 Mower % (Auto) 10.1 % (0.0-13.0) 06/26/23 04:54 Eos % (Auto) 0.1 % (0.9-2.9) L 06/26/23 04:54 Baso % (Auto) 0.1 % (0.2-1.0) L 06/26/23 04:54 Neut # (Auto) 18.4 x10^3/uL (2.2-4.8) H 06/26/23 04:54 Lymph # (Auto) 1.7 X10^3/uL (1.3-2.9) 06/26/23 04:54 Mower # (Auto) 2.3 x10^3/uL (0.3-0.8) H 06/26/23 04:54 Eos # (Auto) 0.0 x10^3/uL (0.0-0.2) 06/26/23 04:54 Baso # (Auto) 0.0 X10^3/uL (0.0-0.1) 06/26/23 04:54 Absolute Nucleated RBC 0.0 /100WBC 06/26/23 04:54 Total Counted 100 06/26/23 04:54 Neutrophils % (Manual) 75 % (39-76) 06/26/23 04:54 Band Neutrophils % 4 % (0-10) 06/26/23 04:54 Lymphocytes % (Manual) 13 % (13-43) 06/26/23 04:54 Monocytes % (Manual) 8 % (4-9) 06/26/23 04:54 Plt Morphology Comment Normal (NORMAL) 06/26/23 04:54 RBC Morphology Normal (NORMAL) 06/26/23 04:54 Sodium 138 mmol/L (136-145) 06/26/23 04:54 Corrected Sodium TNP 06/26/23 04:54 Potassium 4.3 mmol/L (3.5-5.1) 06/26/23 04:54 Chloride 105 mmol/L (98-107) 06/26/23 04:54 Carbon Dioxide 25.7 mmol/L (21-32) 06/26/23 04:54 BUN 9 mg/dL (7-18) 06/26/23 04:54 Creatinine 0.75 mg/dL (0.70-1.30) 06/26/23 04:54 Est GFR (MDRD) Af Amer > 60 (>60) 06/26/23 04:54 Est GFR (MDRD) Non-Af > 60 (>60) 06/26/23 04:54 Glucose 97 mg/dL (65-99) 06/26/23 04:54 Calcium 8.7 mg/dL (8.5-10.1) 06/26/23 04:54 Corrected Calcium 9.4 mg/dL (8.5-10.1) 06/26/23 04:54 Magnesium 2.3 mg/dL (2.0-2.9) 06/26/23 04:54 Total Bilirubin 0.90 mg/dL (0.2-1.0) 06/26/23 04:54 AST 14 Units/L (15-37) L 06/26/23 04:54 ALT 15 Units/L (12-78) 06/26/23 04:54 Alkaline Phosphatase 59 Units/L (46-116) 06/26/23 04:54 Total Protein 6.6 g/dL (6.4-8.2) 06/26/23 04:54 Albumin 3.1 g/dL (3.4-5.0) L 06/26/23 04:54 Globulin 3.5 g/dL (2.5-4.5) 06/26/23 04:54 Albumin/Globulin Ratio 0.9 Ratio (1.1-2.1) L 06/26/23 04:54 Amylase 38 Units/L (25-115) 06/25/23 07:49 Lipase 25 Units/L (16-77) 06/25/23 07:49 Specimen Type Clean catch urine 06/25/23 16:25 Urine Color Yellow (YELLOW) 06/25/23 16:25 Urine Appearance Clear (CLEAR) 06/25/23 16:25 Urine pH 7.0 (5.0 - 8.0) 06/25/23 16:25 Ur Specific [place] 1.015 (1.000-1.030) 06/25/23 16:25 Urine Protein Negative (NEGATIVE) 06/25/23 16:25 Urine Glucose (UA) Negative (NEGATIVE) 06/25/23 16:25 Urine Ketones Negative (NEGATIVE) 06/25/23 16:25 Urine Blood Negative (NEGATIVE) 06/25/23 16:25 Urine Nitrite Negative (NEGATIVE) 06/25/23 16:25 Urine Bilirubin Negative (NEGATIVE) 06/25/23 16:25 Urine Urobilinogen Normal (NORMAL) 06/25/23 16:25 Ur Leukocyte Esterase Negative (NEGATIVE) 06/25/23 16:25 Reason For Visit: ACUTE APPENDICTIS RLQ ABN PAIN Discharge Date Discharge Date: 06/26/23 Discharge Diagnosis All Active Problems (Updated 06/25/23 @ 08:49 by ALEX MORA) STD (sexually transmitted disease) (Acute) Broken tooth-uncomplic (Acute) Sexually transmitted disease (STD) (Acute) Gonorrhea (Acute) Potential exposure to STD (Acute) Facial paresthesia (Acute) Acute appendicitis (Acute) Abdominal pain, RLQ (Acute) Plan of Treatment: Continue with present treatment and follow up plan. Pt is to keep follow up appointment as instructed and take medications as ordered. Discharge Medications Discharge Medications: No Known Allergies Allergy (Verified 06/25/23 07:41) CONTINUE taking the following medications NK 06/25/23 [History] Discharge Disposition Assessment: as per hospital course Discharge Plan Discharge Plan Hospital Course: This is a 32-year-old [facility] the male who presented with acute onset of right lower quadrant pain. CT scan was consistent with acute appendicitis. patient was taken shortly after admission to the operating suite where he under an uncomplicated laparoscopic appendectomy showing supprrative appendicitis with no obvious perforation . He has done well and will be discharged on Cipro, 500 mg PO BID for 1 week and be given a prescription for Percocet, 5 milligram tablets 1 every 6 hours PRN pain . F/U 1 week. Patient Disposition: 01 HOME, SELF-CARE Condition: Stable Health Concerns: Post Hospitalization: new medications and changes needed to prevent readmission or further decline. Pt educated and given instructions on all concerns. Care Plan Goals: return to usual activity Plan of Treatment: Continue with present treatment and follow up plan. Pt is to keep follow up appointment as instructed and take medications as ordered. Assessment: as per hospital course Prescription drug monitoring program results: PDMP reviewed and no concerns identified Prescriptions: New ciprofloxacin HCl [Cipro] 500 mg tablet 500 mg PO BID Qty: 14 0RF oxycodone-acetaminophen [Percocet] 5-325 mg tablet 1 tab PO Q6H MDD 4 PRNQty: 20 0RF Orders to Discharge Patient Discharge Orders: Discharge (Routine); Ordered 06/26/23 Ordered By: Sebastián De La Fuente Follow ups/Referrals Follow ups/Referrals: NFD,None [Primary Care Provider] - 3 days Instructions Instructions: Laparoscopic Appendectomy, Adult, Care After, Vvan-ry-Mwat Stand Alone Forms: Excuse From Work or School, Post Hospital Follow Up Care
== END 2023-06-26 12:10 | disposition home or self-care (01) ==
LOC: ER 07:09 → MED/SURG 07:09
PROVIDERS: ADMIT Surgery; ATTEND Surgery
PROC: APPYLAP (ICD-10-PCS; 2023-06-25 11:15)
DX: K35.890 Other acute appendicitis without perforation or gangrene; Z72.0 Tobacco use; R10.31 Right lower quadrant pain